=== PATIENT | male | born 1970 | race Caucasian/White ===

== ENCOUNTER → 2016-06-22 | Outpatient (CLI) | payer OTHER ==
[2016-06-22 18:03] LABS: Basophils % (A) 1 %; CH 31.5; Eosinophils # (A) 0.1 k/uL (0-0.7); Eosinophils % (A) 3 %; HDW 2.45; HGB 16.2 gm/dL (13.0-17.5); Luc # (Auto) 0.16; Luc % (Auto) 4; Lymphocytes % (A) 45 %; MCH 30.9 pg (25.0-35.0); MCHC 33.2 g/dL (31.0-37.0); MCV 93.1 fL (80.0-100.0); Mean Platelet Volume 6.9; Monocytes # (A) 0.3 k/uL (0-1.0); Monocytes % (A) 6 %; Neutrophils # (A) 1.8 k/uL (1.3-7.7); Neutrophils % (A) 41 %; RBC 5.26 m/uL (4.30-5.90); RDW 12.2 % (11.5-15.5); WBC 4.4 k/uL (3.8-10.6); WBC (Perox) 4.38
[2016-06-22 18:28] LABS: ALT 32 U/L (21-72); AST 28 U/L (17-59); Alkaline Phosphatase 63 U/L (38-126); Anion Gap 12 mmol/L; Blood Urea Nitrogen 17 mg/dL (9-20); Calcium 9.8 mg/dL (8.4-10.2); Carbon Dioxide 28 mmol/L (22-30); Chloride 104 mmol/L (98-107); Cholesterol 191 mg/dL (<200); Glucose 97 mg/dL (74-99); HDL Cholesterol 65 mg/dL (40-60); Non-African American GFR(MDRD) >60 (>60 ml/min/1.73 sqM); Potassium 4.9 mmol/L (3.5-5.1); Sodium 144 mmol/L (137-145); Total Bilirubin 1.3 mg/dL (0.2-1.3); Total Protein 7.4 g/dL (6.3-8.2); Triglycerides 102 mg/dL (<150)
== END | disposition home or self-care (01) ==
LOC: MMGSC 10:29
PROVIDERS: ATTEND Family Medicine
DX: Z00.00 Encounter for general adult medical examination without abnormal findings (principal); R07.89 Other chest pain
CPT/HCPCS: 36415; 80053; 80061; 84439; 84443; 85025

== ENCOUNTER 2018-11-03 19:16 | Observation (INO) | payer OTHER ==
[2018-11-03] MEDS ORDERED: LORazepam 2 MG/ML INJ IV STA (19:21)
[2018-11-03] MEDS ORDERED: ONDANSETRON 4 MG/2 ML VIAL IVP STA (19:21)
[2018-11-03] MEDS ORDERED: SODIUM CHLORIDE 0.9% 1,000 ML IV STA (19:21)
[2018-11-03 19:35] LABS: Glucose,Whole Blood 98 mg/dL (75-99)
[2018-11-03] MEDS ORDERED: DIAZEPAM 5 MG/ML 2 ML INJ IVP STA (19:42)
--- NOTE | 2018-11-03 19:42 | ED ---
Seizure HPI - General Chief Complaint: Seizure Stated Complaint: Seizure Time Seen by Provider: 11/03/18 19:42 Source: EMS, RN notes reviewed, old records reviewed Mode of arrival: EMS Limitations: altered mental status - History of Present Illness Initial Comments: This is a 48-year-old male the ER for evaluation presents today for evaluation and possible seizure. Patient had a witnessed shaking episode per familymedical possible, no significant postictal event. Patient is no significant current complaints except feeling very shaky and very anxious. Patient does admit to taking Xanax on occasion which she has not taken for the past 2 days is with alcohol today but not a significant amount. Patient denies being a daily drinker. No other significant illicit drug abuse. Patient does admit to diminished appetite lately secondary to stress of divorce that he is going through MD Complaint: seizure (Witnessed seizure), possible seizure, shaking (Witnessed shaking) -: minutes(s) Description of Episode: tonic-clonic movement -: minutes(s) Witnessed: yes - by bystander Trauma: No Seizure History: other (Patient has been taking Xanax recently but has not taken the last 3 days) Place: home Possible Precipitating Event: none Associated Symptoms: denies other symptoms Treatments Prior to Arrival: none - Related Data Home Medications Medication Instructions Recorded Confirmed ALPRAZolam [Xanax] 0.5 mg PO DAILY PRN 11/03/18 11/03/18 Fexofenadine HCl [Donna Allergy] 180 mg PO DAILY 11/03/18 11/03/18 Glucosam/Venancio-Msm1/C/Douglas/Bosw 1 tab PO DAILY 11/03/18 11/03/18 [Glucosamine-Chondroitin Tablet] Multivitamins, Thera [Multivitamin 1 tab PO DAILY 11/03/18 11/03/18 (formulary)] Zolpidem Tartrate [Ambien] 5 mg PO HS PRN 11/03/18 11/03/18 Allergies Allergy/AdvReac Type Severity Reaction Status Date / Time No Known Allergies Allergy Verified 11/03/18 20:28 Review of Systems ROS Statement: Those systems with pertinent positive or pertinent negative responses have been documented in the HPI. ROS Other: All systems not noted in ROS Statement are negative. Past Medical History Additional Past Medical History / Comment(s): insomnia, anxiety History of Any Multi-Drug Resistant Organisms: None Reported Additional Past Surgical History / Comment(s): no surgeries Past Psychological History: Anxiety Smoking Status: Never smoker Past Alcohol Use History: Daily Past Drug Use History: None Reported - Past Family History family Additional Family Medical History / Comment(s): Absence seizure his daughter General Exam Limitations: altered mental status General appearance: alert, in no apparent distress Head exam: Present: atraumatic, normocephalic, normal inspection Eye exam: Present: normal appearance, PERRL, EOMI. Absent: scleral icterus, conjunctival injection, periorbital swelling ENT exam: Present: normal exam, mucous membranes moist Neck exam: Present: normal inspection. Absent: tenderness, meningismus, lymphadenopathy Respiratory exam: Present: normal lung sounds bilaterally. Absent: respiratory distress, wheezes, rales, rhonchi, stridor Cardiovascular Exam: Present: regular rate, normal rhythm, normal heart sounds. Absent: systolic murmur, diastolic murmur, rubs, gallop, clicks GI/Abdominal exam: Present: soft, normal bowel sounds. Absent: distended, tenderness, guarding, rebound, rigid Extremities exam: Present: normal inspection, full ROM, normal capillary refill. Absent: tenderness, pedal edema, joint swelling, calf tenderness Back exam: Present: normal inspection Neurological exam: Present: alert, oriented X3, CN II-XII intact Psychiatric exam: Present: normal affect, normal mood Skin exam: Present: warm, dry, intact, normal color. Absent: rash Course Vital Signs 11/03/18 11/03/18 11/03/18 19:20 20:28 22:43 Temperature 96.8 F L 97 F L Pulse Rate 76 68 Pulse Rate [ 58 L [employer] ] Respiratory 24 16 16 Rate Blood Pressure 117/83 127/79 Blood Pressure 119/74 [Right Arm] O2 Sat by Pulse 100 100 97 Oximetry - Reevaluation(s) Reevaluation #1: 11/03/18 20:42 Medical record is reviewed Reevaluation #2: 11/03/18 20:43 Patient has no recurrent seizure here in the ER Medical Decision Making - Medical Decision Making 48 male recently going through divorce in significant distress been drinking, decreased appetite presented today with seizure-like activity, no significant postictal phase. Patient is found to have low phosphorus here in the ER, computed tomography scan is negative otherwise labwork is without significant and her male the patient be admitted for phosphorus replacement - Lab Data Result diagrams: 11/04/18 06:18 11/04/18 06:15 Lab Results 11/03/18 11/03/18 11/03/18 Range/Units 19:33 19:40 19:40 WBC 8.9 (3.8-10.6) k/uL RBC 5.02 (4.30-5.90) m/uL Hgb 15.6 (13.0-17.5) gm/dL Hct 45.3 (39.0-53.0) % MCV 90.2 (80.0-100.0) fL MCH 31.0 (25.0-35.0) pg MCHC 34.4 (31.0-37.0) g/dL RDW 12.3 (11.5-15.5) % Plt Count 302 (150-450) k/uL Neutrophils % 69 % Lymphocytes % 20 % Monocytes % 4 % Eosinophils % 4 % Basophils % 1 % Neutrophils # 6.1 (1.3-7.7) k/uL Lymphocytes # 1.8 (1.0-4.8) k/uL Monocytes # 0.4 (0-1.0) k/uL Eosinophils # 0.3 (0-0.7) k/uL Basophils # 0.1 (0-0.2) k/uL Sodium 140 (137-145) mmol/L Potassium 3.5 (3.5-5.1) mmol/L Chloride 106 (98-107) mmol/L Carbon Dioxide 20 L (22-30) mmol/L Anion Gap 14 mmol/L BUN 14 (9-20) mg/dL Creatinine 0.89 (0.66-1.25) mg/dL Est GFR (CKD-EPI)AfAm >90 (>60 ml/min/1.73 sqM) Est GFR (CKD-EPI)NonAf >90 (>60 ml/min/1.73 sqM) Glucose 115 H (74-99) mg/dL POC Glucose (mg/dL) 98 (75-99) mg/dL POC Glu Outpatient Phlebotomist ID Suze Dubon Calcium 9.6 (8.4-10.2) mg/dL Phosphorus 1.3 L (2.5-4.5) mg/dL Magnesium 1.8 (1.6-2.3) mg/dL Total Bilirubin 1.1 (0.2-1.3) mg/dL AST 23 (17-59) U/L ALT 24 (21-72) U/L Alkaline Phosphatase 69 (38-126) U/L Creatine Kinase 202 H (55-170) U/L CK-MB (CK-2) (0.0-2.4) ng/mL Total Protein 7.1 (6.3-8.2) g/dL Albumin 4.5 (3.5-5.0) g/dL Urine Color Urine Appearance (Clear) Urine pH (5.0-8.0) Ur Specific [place] (1.001-1.035) Urine Protein (Negative) Urine Glucose (UA) (Negative) Urine Ketones (Negative) Urine Blood (Negative) Urine Nitrite (Negative) Urine Bilirubin (Negative) Urine Urobilinogen (<2.0) mg/dL Ur Leukocyte Esterase (Negative) Salicylates <1.0 mg/dL Urine Opiates Screen (NotDetected) Ur Oxycodone Screen (NotDetected) Urine Methadone Screen (NotDetected) Ur Propoxyphene Screen (NotDetected) Acetaminophen <10.0 ug/mL Ur Barbiturates Screen (NotDetected) U Tricyclic Antidepress (NotDetected) Ur Phencyclidine Scrn (NotDetected) Ur Amphetamines Screen (NotDetected) U Methamphetamines Scrn (NotDetected) U Benzodiazepines Scrn (NotDetected) Urine Cocaine Screen (NotDetected) U Marijuana (THC) Screen (NotDetected) Serum Alcohol <10 mg/dL 11/03/18 11/03/18 Range/Units 19:40 21:15 WBC (3.8-10.6) k/uL RBC (4.30-5.90) m/uL Hgb (13.0-17.5) gm/dL Hct (39.0-53.0) % MCV (80.0-100.0) fL MCH (25.0-35.0) pg MCHC (31.0-37.0) g/dL RDW (11.5-15.5) % Plt Count (150-450) k/uL Neutrophils % % Lymphocytes % % Monocytes % % Eosinophils % % Basophils % % Neutrophils # (1.3-7.7) k/uL Lymphocytes # (1.0-4.8) k/uL Monocytes # (0-1.0) k/uL Eosinophils # (0-0.7) k/uL Basophils # (0-0.2) k/uL Sodium (137-145) mmol/L Potassium (3.5-5.1) mmol/L Chloride (98-107) mmol/L Carbon Dioxide (22-30) mmol/L Anion Gap mmol/L BUN (9-20) mg/dL Creatinine (0.66-1.25) mg/dL Est GFR (CKD-EPI)AfAm (>60 ml/min/1.73 sqM) Est GFR (CKD-EPI)NonAf (>60 ml/min/1.73 sqM) Glucose (74-99) mg/dL POC Glucose (mg/dL) (75-99) mg/dL POC Glu Outpatient Phlebotomist ID Calcium (8.4-10.2) mg/dL Phosphorus (2.5-4.5) mg/dL Magnesium (1.6-2.3) mg/dL Total Bilirubin (0.2-1.3) mg/dL AST (17-59) U/L ALT (21-72) U/L Alkaline Phosphatase (38-126) U/L Creatine Kinase (55-170) U/L CK-MB (CK-2) 1.5 (0.0-2.4) ng/mL Total Protein (6.3-8.2) g/dL Albumin (3.5-5.0) g/dL Urine Color Yellow Urine Appearance Clear (Clear) Urine pH 6.0 (5.0-8.0) Ur Specific [place] 1.016 (1.001-1.035) Urine Protein Trace H (Negative) Urine Glucose (UA) Negative (Negative) Urine Ketones 1+ H (Negative) Urine Blood Negative (Negative) Urine Nitrite Negative (Negative) Urine Bilirubin Negative (Negative) Urine Urobilinogen <2.0 (<2.0) mg/dL Ur Leukocyte Esterase Negative (Negative) Salicylates mg/dL Urine Opiates Screen Not Detected (NotDetected) Ur Oxycodone Screen Not Detected (NotDetected) Urine Methadone Screen Not Detected (NotDetected) Ur Propoxyphene Screen Not Detected (NotDetected) Acetaminophen ug/mL Ur Barbiturates Screen Not Detected (NotDetected) U Tricyclic Antidepress Not Detected (NotDetected) Ur Phencyclidine Scrn Not Detected (NotDetected) Ur Amphetamines Screen Not Detected (NotDetected) U Methamphetamines Scrn Not Detected (NotDetected) U Benzodiazepines Scrn Not Detected (NotDetected) Urine Cocaine Screen Not Detected (NotDetected) U Marijuana (THC) Screen Not Detected (NotDetected) Serum Alcohol mg/dL - EKG Data -: EKG Interpreted by Me (EKG shows sinus rhythm rate of 70, MI 134, QRS 96, QTc 466) - Radiology Data Radiology results: report reviewed (CT brain is negative for acute disease), usama ge reviewed Disposition Clinical Impression: Hypophosphatemia Disposition: ADMITTED IP TO THIS [facility] Condition: Good Is patient prescribed a controlled substance at d/c from ED?: No
[2018-11-03 19:59] LABS: Basophils # (A) 0.1 k/uL (0-0.2); Basophils % (A) 1 %; Eosinophils # (A) 0.3 k/uL (0-0.7); Eosinophils % (A) 4 %; HCT 45.3 % (39.0-53.0); HGB 15.6 gm/dL (13.0-17.5); Lymphocytes # (A) 1.8 k/uL (1.0-4.8); Lymphocytes % (A) 20 %; MCHC 34.4 g/dL (31.0-37.0); MCV 90.2 fL (80.0-100.0); Mean Platelet Volume 6.7; Monocytes # (A) 0.4 k/uL (0-1.0); Monocytes % (A) 4 %; Neutrophils # (A) 6.1 k/uL (1.3-7.7); Neutrophils % (A) 69 %; Platelet Count 302 k/uL (150-450); RBC 5.02 m/uL (4.30-5.90); RDW 12.3 % (11.5-15.5); WBC 8.9 k/uL (3.8-10.6)
[2018-11-03 20:11] LABS: ALT 24 U/L (21-72); AST 23 U/L (17-59); Acetaminophen <10.0 ug/mL; African American GFR (CKD) >90 (>60 ml/min/1.73 sqM); Albumin 4.5 g/dL (3.5-5.0); Alcohol <10 mg/dL; Alkaline Phosphatase 69 U/L (38-126); Anion Gap 14 mmol/L; Blood Urea Nitrogen 14 mg/dL (9-20); Calcium 9.6 mg/dL (8.4-10.2); Carbon Dioxide 20 mmol/L (22-30); Chloride 106 mmol/L (98-107); Creatine Kinase 202 U/L (55-170); Glucose 115 mg/dL (74-99); Magnesium 1.8 mg/dL (1.6-2.3); Phosphorus 1.3 mg/dL (2.5-4.5); Potassium 3.5 mmol/L (3.5-5.1); Salicylate <1.0 mg/dL; Sodium 140 mmol/L (137-145); Total Bilirubin 1.1 mg/dL (0.2-1.3); Total Protein 7.1 g/dL (6.3-8.2)
--- NOTE | 2018-11-03 20:16 | CT ---
EXAMINATION TYPE: CT brain wo con DATE OF EXAM: 11/03/2018 COMPARISON: None HISTORY: Seizure CT DLP: 1086.4 mGycm. Automated Exposure Control for Dose Reduction was Utilized. TECHNIQUE: CT scan of the head is performed without contrast. FINDINGS: Ventricles and sulci appear normal. There is no mass effect nor midline shift. There is no sign of intracranial hemorrhage. The calvarium is intact. There is some mucosal thickening right maxillary sinus. IMPRESSION: Negative head CT scan. Mild right maxillary sinusitis.
[2018-11-03] MEDS: SODIUM PHOSPHATE 10 MMOL in SODIUM CHLORIDE 0.9% 250 ML IVPB SCH (21:15)
[2018-11-03 21:25] LABS: Appearance,Urine Clear (Clear); Bilirubin,Urine Negative (Negative); Blood,Urine Negative (Negative); Color,Urine Yellow; Glucose,Urine (UA) Negative (Negative); Ketones,Urine 1+ (Negative); Leukocyte Esterase,Urine Negative (Negative); Nitrite,Urine Negative (Negative); Protein,Urine Trace (Negative); Specific Gravity,Urine 1.016 (1.001-1.035); Urobilinogen,Urine <2.0 mg/dL (<2.0)
[2018-11-03 21:34] LABS: Amphetamine Screen,Urine Not Detected (NotDetected); Barbiturate Screen,Urine Not Detected (NotDetected); Benzodiazepines Screen,Urine Not Detected (NotDetected); Cocaine Screen,Urine Not Detected (NotDetected); Methadone Screen, Urine Not Detected (NotDetected); Opiate Screen,Urine Not Detected (NotDetected); Oxycodone Screen, Urine Not Detected (NotDetected); Phencyclidine Screen,Urine Not Detected (NotDetected); Tricyclic Antidepressant,Urine Not Detected (NotDetected); Urn Cannabinoid Scrn Not Detected (NotDetected)
[2018-11-03] MEDS ORDERED: NALOXONE 0.4 MG/ML 1 ML VIAL IV PRN (22:23)
[2018-11-03] MEDS ORDERED: ONDANSETRON 4 MG/2 ML VIAL IVP PRN (23:51)
[2018-11-03] MEDS ORDERED: MAG HYDROX/AL HYDROX/SIMETH 30 ML CUP PO PRN (23:52)
--- NOTE | 2018-11-04 00:03 | P.HPIM ---
History of Present Illness H&P Date: 11/03/18 Chief Complaint: seizure 48-year-old malesignificant past medical history Patient was at the pool today playing volleyball with family and friends when suddenly he was feeling confused and then he woke up on the side of the pool he was told by bystanders and friends that he stiffened up and was shaking he was suspected to be in the seizure he was pulled out of the pool and placed in safety EMS notified and was brought to the hospital. Patient denies any bladder or bowel incontinence but he didn't bite his tongue No head injuries. Patient denies any head trauma. Patient denies any new medications or herbal supplements. Patient denies any history of seizures in the past. he denies any illicit drugs. He is only occasional drinker of alcohol he had probably one drink today he denies any significant amount of alcohol. He does admit to a lot of stress in his life he's been taking Xanax when necessary however he didn't take any for the past few days. Patient also admits to poor by mouth intake and poor sleep hygiene over at least 6 months now. 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 patient feels kind of weak and tired at this time but almost back to his baseline he denies any focal neuro deficits. He feels little nauseated but denies any double vision or changes in hearing. In the ED computed tomography scan of the head was negative Labs showed low phosphorus level Review of Systems Pertinent positives as noted in HPI. All other systems were reviewed and are negative Past Medical History Additional Past Medical History / Comment(s): insomnia, anxiety History of Any Multi-Drug Resistant Organisms: None Reported Additional Past Surgical History / Comment(s): no surgeries Past Psychological History: Anxiety Smoking Status: Never smoker Past Alcohol Use History: Daily Past Drug Use History: None Reported - Past Family History family Additional Family Medical History / Comment(s): Absence seizure his daughter Medications and Allergies Home Medications Medication Instructions Recorded Confirmed Type ALPRAZolam [Xanax] 0.5 mg PO DAILY PRN 11/03/18 11/03/18 History Fexofenadine HCl [Donna Allergy] 180 mg PO DAILY 11/03/18 11/03/18 History Glucosam/Venancio-Msm1/C/Douglas/Bosw 1 tab PO DAILY 11/03/18 11/03/18 History [Glucosamine-Chondroitin Tablet] Multivitamins, Thera [Multivitamin 1 tab PO DAILY 11/03/18 11/03/18 History (formulary)] Zolpidem Tartrate [Ambien] 5 mg PO HS PRN 11/03/18 11/03/18 History Allergies Allergy/AdvReac Type Severity Reaction Status Date / Time No Known Allergies Allergy Verified 11/03/18 20:28 Physical Exam Vitals: Vital Signs Temp Pulse Resp BP Pulse Ox 11/03/18 20:28 68 16 127/79 100 11/03/18 19:20 96.8 F L 76 24 117/83 100 Intake and Output 11/03/18 11/03/18 11/03/18 06:59 14:59 22:59 Other: Weight 83.915 kg Constitutional: No acute distress, conversant, pleasant Eyes: Anicteric sclerae, moist conjunctiva, no lid-lag Pupils equal round reactive to light ENMT: NC/AT Oropharynx clear, no erythema, exudates Neck: Supple, FROM, no masses, or JVD No carotid bruits No thyromegaly Lungs: Clear to auscultation Clear to percussion Normal respiratory effort, no accessory muscle use Cardiovascular: Heart regular in rate and rhythm, No murmurs, gallops, or rubs No peripheral edema Abdominal: Soft Nontender, no guarding, rebound or rigidity Abdomen moving with respiration Normoactive bowel sounds No hepatomegaly, No splenomegaly No palpable mass No abdominal wall hernia noted Skin: Normal temperature, tone, texture, turgor No induration No subcutaneous nodules No rash, lesions No ulcers Extremities: No digital cyanosis No clubbing Pedal pulses intact and symmetrical Radial pulses intact and symmetrical No calf tenderness Psychiatric: Alert and oriented to person, place and time Appropriate affect fair judgment Neuro Muscles Strength 5/5 in all 4 extremities Sensation to light touch grossly present throughout Cranial nerves II-XII grossly intact No focal sensory deficits no nystagmus Finger-nose and heel holt exam both unremarkable Reflexes are intact over bilateral knees and brachial reflexes. No clonus jerk over bilateral feet Lymphatics: no palpable cervical or supraclavicular , or inguinal lymph nodes Results CBC & Chem 7: 11/03/18 19:40 11/03/18 19:40 Labs: Abnormal Lab Results - Last 24 Hours (Table) 11/03/18 Range/Units 19:40 Carbon Dioxide 20 L (22-30) mmol/L Glucose 115 H (74-99) mg/dL Phosphorus 1.3 L (2.5-4.5) mg/dL Creatine Kinase 202 H (55-170) U/L Assessment and Plan Assessment: 48-year-old male with no significant past medical history admitted as inpatient with anticipated length of stay more than 48 hours due to episodes of seizure with no history of epilepsy he was found to have hypophosphatemia which could be playing a role into having seizure. Patient admitted for neurologic evaluation and monitoring replacement of his phosphorus Plan: tonic-clonic seizure possibly due to electrolyte imbalance hypophosphatemia due to decreased by mouth intake CT of the head negative Check EEG Seizure precautions Neurologic evaluation Patient was notified that per [place] state law he is not to drive for 6 months not to operate any heavy machinery not to swim unsupervised and not to upper 8 a public transportation vehicle replace phosphate IV, start by mouth replacement and morning continue to monitor phosphorus level closely DVT prophylaxis heparin subcu 3 times a day CODE STATUS:full code Discussed with: Patient, ER Anticipated discharge: 48-[address]: home A total of 60minutes was spent on the care of this complex patient more than 50% of the time was spent in counseling and care coordination.
[2018-11-04] MEDS: ALPRAZolam 0.25 MG TAB PO PRN ×2 (00:38→23:02)
[2018-11-04] MEDS: SODIUM PHOSPHATE 10 MMOL in SODIUM CHLORIDE 0.9% 250 ML IVPB SCH ×2 (00:38→02:54)
[2018-11-04] MEDS: SODIUM CHLORIDE 0.9% 1,000 ML IV SCH ×2 (00:40→07:55)
[2018-11-04 04:27] VITALS: BMI 27.0
[2018-11-04] MEDS: PANTOPRAZOLE 40 MG TABLET PO SCH (06:50)
[2018-11-04 06:52] LABS: Basophils # (A) 0.1 k/uL (0-0.2); Basophils % (A) 1 %; Eosinophils # (A) 0.3 k/uL (0-0.7); Eosinophils % (A) 3 %; HCT 41.1 % (39.0-53.0); HGB 13.5 gm/dL (13.0-17.5); Lymphocytes # (A) 2.1 k/uL (1.0-4.8); Lymphocytes % (A) 21 %; MCH 30.1 pg (25.0-35.0); MCHC 32.9 g/dL (31.0-37.0); MCV 91.5 fL (80.0-100.0); Monocytes # (A) 0.6 k/uL (0-1.0); Monocytes % (A) 6 %; Neutrophils # (A) 6.4 k/uL (1.3-7.7); Neutrophils % (A) 67 %; Platelet Count 262 k/uL (150-450); RBC 4.49 m/uL (4.30-5.90); RDW 13.4 % (11.5-15.5); WBC 9.7 k/uL (3.8-10.6)
[2018-11-04 07:10] LABS: African American GFR (CKD) >90 (>60 ml/min/1.73 sqM); Anion Gap 8 mmol/L; Blood Urea Nitrogen 13 mg/dL (9-20); Calcium 8.8 mg/dL (8.4-10.2); Carbon Dioxide 23 mmol/L (22-30); Chloride 110 mmol/L (98-107); Glucose 111 mg/dL (74-99); Phosphorus 4.2 mg/dL (2.5-4.5); Potassium 3.5 mmol/L (3.5-5.1); Sodium 141 mmol/L (137-145)
[2018-11-04] MEDS: POTAS-SOD-PHOS 278-164-250 MG 1 EACH PACKET PO SCH ×3 (07:56→23:02)
[2018-11-04] MEDS ORDERED: LORazepam 2 MG/ML INJ IV PRN (10:00)
--- NOTE | 2018-11-04 10:16 | P.PN ---
Subjective Progress Note Date: 11/04/18 Principal diagnosis: Seizure Patient was seen and examined. No acute events overnight. Patient reports being back to baseline. Wanting to go home. Upset that he cant see neurology or get EEG done today. Objective - Vital Signs Vital signs: Vital Signs Temp 98.3 F 11/04/18 08:00 Pulse 66 11/04/18 08:00 Resp 16 11/04/18 08:00 BP 108/59 11/04/18 08:00 Pulse Ox 99 11/04/18 08:00 Intake & Output 11/03/18 11/04/18 11/04/18 18:59 06:59 18:59 Intake Total 700 Balance 700 Weight 85.4 kg Intake: Oral 700 Other: # Voids 2 - Exam General: [non toxic], [no distress], [appears at stated age] Derm: [warm], [dry] Head: [atraumatic], [normocephalic], [symmetric] Eyes: [EOMI], [no lid lag], [anicteric sclera] Mouth: [no lip lesion], [mucus membranes moist] Cardiovascular: [S1S2 reg], [no murmur], [positive DP pulse bilateral] Lungs: [CTA bilateral], [no rhonchi, no rales] , [no accessory muscle use] Abdominal: [soft], [ nontender to palpation], [no guarding], [no appreciable organomegaly] Ext: [no gross muscle atrophy], [no edema], [no contractures] Neuro: [ CN II-XI grossly intact], [no focal neuro deficits] Psych: [Alert], [oriented], [appropriate affect] - Labs CBC & Chem 7: 11/04/18 06:18 11/04/18 06:15 Labs: Abnormal Lab Results - Last 24 Hours (Table) 11/03/18 11/03/18 11/04/18 Range/Units 19:40 21:15 06:15 Chloride 110 H (98-107) mmol/L Carbon Dioxide 20 L (22-30) mmol/L Glucose 115 H 111 H (74-99) mg/dL Phosphorus 1.3 L (2.5-4.5) mg/dL Creatine Kinase 202 H (55-170) U/L Urine Protein Trace H (Negative) Urine Ketones 1+ H (Negative) Assessment and Plan Assessment: Assessment and Plan Tonic-clonic seizure possibly due to electrolyte abnormality Hypophosphatemia due to poor oral intake Witnessed seizure, new onset. CT brain negative. Plans: Ativan as needed for seizures. Seizure and fall precautions. Follow EEG. Monitor and replace electrolytes. Follow neurology consultation. Phosphate 1.3. Replaced IV in the ED. Phosphate this morning 4.2, within normal limits. Plans: Recheck in the morning. Start oral replacement. Patient admitted for seizure. Found to be hypophosphatemic. EEG ordered, neurology is consulted. Likely DC in 1-2 days.
[2018-11-05] MEDS: PANTOPRAZOLE 40 MG TABLET PO SCH (06:36)
[2018-11-05 06:38] VITALS: RESP 16
[2018-11-05] MEDS: POTAS-SOD-PHOS 278-164-250 MG 1 EACH PACKET PO SCH (08:35)
[2018-11-05 10:16] VITALS: BP 130/89; PULSE 76; TEMP 98.2
--- NOTE | 2018-11-05 17:37 | P.DS ---
Providers Date of admission: 11/03/18 22:24 Expected date of discharge: 11/05/18 Attending physician: Leah Sanchez MD Consults: 11/04/18 00:04 Consult Physician Routine Consulting Provider: Felipe Barrett Consult Reason/Comments: seizure Do you want consulting provider notified?: Yes, Notify in am Primary care physician: Claribel Pina - Discharge Diagnosis(es) (1) New onset seizure Status: Acute (2) Hypophosphatemia Status: Acute (3) Polysubstance abuse Status: Acute Hospital Course: The patient is a 48-year-old male without any significant past medical history that was admitted with suspicion of new onset seizures of likely multifactorial etiology secondary to severe profound electrolyte depletion with hypophosphatemia, patient was placed on seizure precautions and started on Ativan when necessary there is no recurrence of any seizure-like activity while hospitalized, EEG was otherwise normal. The patient's phosphate was replaced with Neutra-Phos after presenting with a serum potassium level I.3 this was corrected and was 4.2 at time of discharge . CT of the head was negative for any acute intracranial pathology only showed mild right maxillary sinusitis. The patient was seen by Dr. Barrett with neurology recommended a follow-up MRI in the outpatient setting. It was thought that his dyspnea onset seizures as secondary to metabolic derangement with low phosphate superimposed on polysu bstance abuse, and alcohol use. Neurology recommended not using any antiepileptic drug at this time. Patient was subsequently discharged home in stable condition and instructed as per [place] state law not to drive until being at least 6 months seizure-free, we discussed workplace restrictions including operation of any vehicles and large machinery patient also instructed to follow-up with his primary care physician Dr. Pina in 3-5 days. Discharge process took approximately 35 minutes. focus exam neurologic: Cranial nerves II 12 grossly intact no focal deficits appreciated Patient Condition at Discharge: Good Plan - Discharge Summary Discharge Rx Participant: No New Discharge Prescriptions: Continue Zolpidem Tartrate [Ambien] 5 mg PO HS PRN PRN Reason: Insomnia Glucosam/Venancio-Msm1/C/Douglas/Bosw [Glucosamine-Chondroitin Tablet] 1 tab PO DAILY ALPRAZolam [Xanax] 0.5 mg PO DAILY PRN PRN Reason: Insomnia Multivitamins, Thera [Multivitamin (formulary)] 1 tab PO DAILY Fexofenadine HCl [Donna Allergy] 180 mg PO DAILY Discharge Medication List ALPRAZolam [Xanax] 0.5 mg PO DAILY PRN 11/03/18 [History] Fexofenadine HCl [Donna Allergy] 180 mg PO DAILY 11/03/18 [History] Glucosam/Venancio-Msm1/C/Douglas/Bosw [Glucosamine-Chondroitin Tablet] 1 tab PO DAILY 11/03/18 [History] Multivitamins, Thera [Multivitamin (formulary)] 1 tab PO DAILY 11/03/18 [History] Zolpidem Tartrate [Ambien] 5 mg PO HS PRN 11/03/18 [History] Follow up Appointment(s)/Referral(s): Claribel Pina MD [Primary Care Provider] - 1-2 days (Spoke to Radha at the office. She will call you ith an appointment time) Ambulatory/Diagnostic Orders: Miscellaneous Radiology Order [RAD.AMB] Time Frame: 1 Week, Facility: [facility], Location: [facility] Patient Instructions/Handouts: New-Onset Seizure in Adults (DC) Activity/Diet/Wound Care/Special Instructions: MRI is scheduled for MondayNovember 09 at 8:45am. They will call you with more information No driving for 6 months per Take the Interview law Discharge/Stand Alone Forms: Work/School Release Discharge Disposition: HOME SELF-CARE
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
--- NOTE | 2018-11-06 15:46 | EEG ---
ELECTROENCEPHALOGRAM REPORT DATE OF STUDY: 11/05/2018 CLINICAL HISTORY: This is an 18-channel EEG with one-channel EKG recording on a 48-year-old male who presented to [facility] on 11/03/2018 for evaluation of new-onset seizure. This study is being done to rule out epileptiform discharges. FINDINGS: Wakefulness and drowsiness were obtained during the recording. In the maximal awake state, a moderate-voltage 10 Hz posterior-dominant background rhythm was demonstrated. This was regulated, sustained, symmetric and reactive to eye opening. Low-voltage faster frequencies were best seen over the frontal central head regions. Photic stimulation produced a symmetric driving response and a few flash frequencies. Hyperventilation produced mild buildup of slower frequencies but added no additional features. Drowsiness was manifested by attenuation of the posterior-dominant background rhythm and the appearance of symmetric vertex waves. No epileptiform discharges or focal lateralizing features are present. SUMMARY: Normal awake and drowsy EEG. INTERPRETATION: This EEG is within normal limits for age. No epileptiform discharges or focal lateralizing features are present. MMODL / IJN: [id number] /
== END 2018-11-05 13:30 | disposition home or self-care (01) ==
LOC: EC 19:16 → 3SCARD 22:24
PROVIDERS: ADMIT Internal Medicine; ATTEND Internal Medicine
DX: G40.89 Other seizures (principal); E83.39 Other disorders of phosphorus metabolism; Y93.68 Activity, volleyball (beach) (court); F14.10 Cocaine abuse, uncomplicated; Z71.41 Alcohol abuse counseling and surveillance of alcoholic; G47.00 Insomnia, unspecified; Z71.51 Drug abuse counseling and surveillance of drug abuser; F10.10 Alcohol abuse, uncomplicated; Y92.34 Swimming pool (public) as the place of occurrence of the external cause; Z79.899 Other long term (current) drug therapy; Z63.0 Problems in relationship with spouse or partner; Z87.820 Personal history of traumatic brain injury; Z82.49 Family history of ischemic heart disease and other diseases of the circulatory system; Z82.0 Family history of epilepsy and other diseases of the nervous system
CPT/HCPCS: 96361 ×3; 96365; 96375; 99285; 36415; 95819; 93005; 80053; 80048; 82550; 82553; 83735 ×2; 84100 ×2; 85025 ×2; 81003; 80306; 83520; 80329; 80320; 70450; G0378 ×3; J2060; J3360

== ENCOUNTER → 2018-11-12 | Outpatient (CLI) | payer OTHER ==
--- NOTE | 2018-11-13 07:10 | MR ---
EXAMINATION TYPE: MR brain wo/w con DATE OF EXAM: 11/12/2018 COMPARISON: CT brain 9 days ago. HISTORY: Seizure TECHNIQUE: Multiplanar, multisequence images of the brain and brainstem is performed without and with IV contras t, utilizing 9 mL intravenous Gadavist . FINDINGS: Diffusion weighted images demonstrate no evidence of a recent infarct or other diffusion ab normality. There is no extra-axial fluid collection or significant white matter signal abnormality. The ventricular system and cisternal spaces are normal in size and appearance. The brain volume is age appropriate. T2 coronal weighted images show hippocampal gyri to appear symmetric and felt within normal limits. Midline structures demonstrate normal morphology. The craniocervical junction appears within normal limits. Post contrast images demonstrate no abnormal enhancement. The dural venous sinuses appear pa tent. Mild mucosal thickening involving inferior maxillary sinuses bilaterally is redemonstrated. Mar bes are intact bilaterally. IMPRESSION: Fairly unremarkable study.
== END | disposition home or self-care (01) ==
LOC: RADMRIMAIN 21:07
PROVIDERS: ATTEND Family Medicine
DX: G40.909 Epilepsy, unspecified, not intractable, without status epilepticus (principal)
CPT/HCPCS: 70553; A9585

== ENCOUNTER → 2022-12-13 | Day surgery (SDC) | payer OTHER ==
[2022-12-12 10:31] VITALS: BMI 27.2
[~2022-12-13] MED LIST: LACTATED RINGERS 1,000 ML IV ONE; PROPOFOL 10 MG/ML 20 ML VIAL IV ONE
[2022-12-13 11:47] VITALS: TEMP 97
--- NOTE | 2022-12-13 12:57 | P.PCN ---
Date of Procedure: 12/13/22 Procedure(s) Performed: BRIEF HISTORY: Patient is a 52-year-old pleasant white male scheduled for an elective colonoscopy as a part of screening for colon cancer. PROCEDURE PERFORMED: Colonoscopy. PREOPERATIVE DIAGNOSIS: Screening for colon cancer. IV sedation per Anesthesia. PROCEDURE: After informed consent was obtained, the patient, was brought into the endoscopy unit. IV sedation was administered by Anesthesia under continuous monitoring. Digital rectal examination was normal. Initially the Olympus CF-160 flexible video colonoscope was then inserted in the rectum, gradually advanced into the cecum without any difficulty. Careful examination was performed as the scope was gradually being withdrawn. Ileocecal valve and the appendiceal orifice were visualized and appeared normal. Prep was excellent. Mucosa of the cecum, ascending colon, transverse colon, descending colon, sigmoid colon, and rectum appeared normal. Scattered sigmoid diverticulosis. Retroflexion was performed in the rectum and no lesions were seen. The patient tolerated the procedure well. IMPRESSION: Normal-appearing colon from rectum to cecum with no evidence of colorectal neoplasia . Scattered sigmoid diverticula RECOMMENDATIONS: Findings of this examination were discussed with the patient as well as his family. He was advised to have a repeat screening colonoscopy in 10 years.
[2022-12-13 13:27] VITALS: BP 134/79; PULSE 55; RESP 14
== END ==
LOC: ORWHC2ENDO 10:36
PROVIDERS: ATTEND Internal Medicine Gastroenterology
DX: Z12.11 Encounter for screening for malignant neoplasm of colon (principal); K57.30 Diverticulosis of large intestine without perforation or abscess without bleeding; Z79.61 Long term (current) use of immunomodulator; Z79.1 Long term (current) use of non-steroidal anti-inflammatories (NSAID)
CPT/HCPCS: 45378; J2704